=== PATIENT | female | born 2000 ===

== ENCOUNTER → 2024-04-26 | Outpatient (CLI) | payer OTHER ==
[2024-04-26 20:16] LABS: Candida Group, PCR NOT DETECTED (NOT DETECT); Candida glabrata-krusei, PCR NOT DETECTED (NOT DETECT)
[2024-04-26 20:56] LABS: Bacterial Vaginosis PCR Positive (NEGATIVE)
== END ==
LOC: LAB SHORT 16:43 → LAB 16:43
PROVIDERS: Advanced Practice Midwife
DX: N89.8 Other specified noninflammatory disorders of vagina (principal)
CPT/HCPCS: 87481; 87661; 87801

== ENCOUNTER → 2024-04-28 | Outpatient (CLI) | payer OTHER ==
[2024-05-01 11:02] LABS: C. TRACHOMATIS BY TMA,THINPREP Negative (Negative); N. GONORRHOEAE BY TMA,THINPREP Negative (Negative); SPECIMEN SOURCE Cervical
== END | disposition home or self-care (01) ==
LOC: LAB SHORT 17:08 → LAB 17:08
PROVIDERS: Family Medicine
DX: Z01.419 Encounter for gynecological examination (general) (routine) without abnormal findings (principal); Z11.3 Encounter for screening for infections with a predominantly sexual mode of transmission
CPT/HCPCS: 87491; 87591

== ENCOUNTER → 2024-05-06 | Outpatient (CLI) | payer OTHER ==
[2024-05-06 19:53] LABS: Bacterial Vaginosis PCR Negative (NEGATIVE); Candida Group, PCR NOT DETECTED (NOT DETECT); Candida glabrata-krusei, PCR NOT DETECTED (NOT DETECT)
== END ==
LOC: LAB 17:26 → LAB SHORT 17:26
PROVIDERS: Family Medicine
DX: N76.0 Acute vaginitis (principal); B96.89 Other specified bacterial agents as the cause of diseases classified elsewhere
CPT/HCPCS: 87481; 87661; 87801

== ENCOUNTER → 2024-05-31 | Outpatient (CLI) | payer OTHER ==
[2024-05-31 19:46] LABS: Bacterial Vaginosis PCR Negative (NEGATIVE); Candida Group, PCR NOT DETECTED (NOT DETECT); Candida glabrata-krusei, PCR NOT DETECTED (NOT DETECT)
== END ==
LOC: LAB 16:53 → LAB SHORT 16:53
PROVIDERS: Advanced Practice Midwife
DX: N89.8 Other specified noninflammatory disorders of vagina (principal)
CPT/HCPCS: 87481; 87661; 87801

== ENCOUNTER → 2024-07-07 | Outpatient (CLI) | payer OTHER ==
[2024-07-07 19:39] LABS: Bacterial Vaginosis PCR Negative (NEGATIVE); Candida Group, PCR NOT DETECTED (NOT DETECT); Candida glabrata-krusei, PCR NOT DETECTED (NOT DETECT)
== END ==
LOC: LAB 16:05 → LAB SHORT 16:05
PROVIDERS: Advanced Practice Midwife
DX: N76.0 Acute vaginitis (principal)
CPT/HCPCS: 87481; 87661; 87801

== ENCOUNTER → 2024-10-08 | Outpatient (CLI) | payer OTHER | END | disposition home or self-care (01) | LOC: LAB 13:33 → LAB SHORT 13:33 | DX: O09.90 Supervision of high risk pregnancy, unspecified, unspecified trimester (principal) | CPT/HCPCS: 87081; 87150 ==

== ENCOUNTER 2024-11-08 18:56 | Inpatient (IN) | payer OTHER ==
[~2024-11-08] VITALS: Ht 157.5 cm; Wt 98.8 kg
[2024-11-08] MEDS ORDERED: Oxytocin 10 Unit / ML Vial IM PRN (19:55)
[2024-11-08] MEDS ORDERED: OXYTOCIN/RINGER'S LACTATE 500 ML IV PRN (19:55)
[2024-11-08] MEDS ORDERED: Ondansetron HCl 2 MG / ML 2ML Vial IV PRN (19:55)
[2024-11-08] MEDS ORDERED: Methylergonovine Maleate 0.2MG / ML 1ML Amp IM PRN (19:55)
[2024-11-08] MEDS ORDERED: Lactated Ringer's 1,000 ML IV PRN (19:55)
[2024-11-08] MEDS ORDERED: Tranexamic Acid 100 ML IV SCH (19:55)
[2024-11-08] MEDS ORDERED: Misoprostol 200 MCG Tab BC PRN (19:55)
[2024-11-08] MEDS ORDERED: Carboprost Tromethamine 250 MCG/ML 1ML Amp IM PRN (19:55)
[2024-11-08] MEDS ORDERED: Misoprostol 200 MCG Tab PR PRN (19:55)
[2024-11-08] MEDS ORDERED: Acetaminophen 500 MG Tab PO PRN (19:55)
[2024-11-08] MEDS ORDERED: Lactated Ringer's 1,000 ML IV SCH ×4 (20:00→22:05)
[2024-11-08] MEDS ORDERED: Calcium Carbonate 500 MG Tab Chew PO SCH (20:00)
[2024-11-08 20:07] VITALS: BP 158/88
[2024-11-08 20:29] VITALS: BP 130/75
[2024-11-08 20:31] VITALS: BP 130/75
[2024-11-08] MEDS ORDERED: Calcium Carbonate 500 MG Tab Chew PO PRN (21:05)
[2024-11-08 21:46] LABS: BASOPHILS ABSOLUTE AUTO 0.04 K/mm3 (0.00-0.23); BASOPHILS PERCENT AUTO 0 % (0-2); EOSINOPHILS ABSOLUTE AUTO 0.02 K/mm3 (0.00-0.68); EOSINOPHILS PERCENT AUTO 0 % (0-6); Hematocrit 36.1 % (33.0-51.0); Hemoglobin 11.6 g/dL (11.5-16.0); IMMATURE GRAN ABSOLUTE AUTO 0.06 K/mm3 (0.00-0.10); IMMATURE GRAN PERCENT AUTO 1 % (0-1); LYMPHOCYTES ABSOLUTE AUTO 1.87 K/mm3 (0.84-5.20); LYMPHOCYTES PERCENT AUTO 18 % (21-46); MONOCYTES ABSOLUTE AUTO 0.74 K/mm3 (0.16-1.47); MONOCYTES PERCENT AUTO 7 % (4-13); Mean Corpuscular HGB 27.4 pg (26.0-34.0); Mean Corpuscular HGB Conc 32.1 g/dL (31.5-36.5); Mean Corpuscular Volume 85 fL (80-100); Mean Platelet Volume 9.1 fL (9.1-12.4); NEUTROPHILS ABSOLUTE AUTO 7.63 K/mm3 (1.96-9.15); NEUTROPHILS PERCENT AUTO 74 % (41-73); Platelet Count 270 K/mm3 (150-400); RDW Coefficient Variation 15.1 % (11.7-14.2); RDW Standard Deviation 46.2 fL (35.1-46.3); Red Blood Cell Count 4.23 M/mm3 (3.80-5.20); White Blood Cell Count 10.36 K/mm3 (4.00-11.30)
[2024-11-08] MEDS ORDERED: Misoprostol 25 MCG Tab VAG PRN (21:55)
[2024-11-08] MEDS ORDERED: OXYTOCIN/RINGER'S LACTATE 500 ML IV SCH (22:00)
[2024-11-08] MEDS ORDERED: ePHEDrine Sulfate 50 MG/ML 1ML Injection XX PRN (22:05)
[2024-11-08] MEDS ORDERED: FentaNYL 2mcg/ml-Bup 0.1% Epd 250 ML EPI PRN (22:05)
[2024-11-08] MEDS ORDERED: PENICILLIN POTASSIUM IV ONE (22:10)
[2024-11-08] MEDS ORDERED: FentaNYL Citrate 50 MCG/ML 2 ML Injection IV PRN (22:10)
[2024-11-08] MEDS ORDERED: Penicillin G Potassium 5,000,000 UNITS in NS 250 ML IV ONE (22:20)
[2024-11-09] VITALS (18 sets, daily range): BP systolic 113–136; BP diastolic 61–107
[2024-11-09] MEDS ORDERED: [UNRECOGNIZED DRUG - OTHER] IV SCH
[2024-11-09] MEDS ORDERED: Acetaminophen 500 MG Tab PO PRN ×2 (01:00→14:40)
[2024-11-09] MEDS ORDERED: Zolpidem Tartrate 10 MG Tab PO ONE (01:00)
[2024-11-09] MEDS ORDERED: Calcium Carbonate 500 MG Tab Chew PO PRN (01:00)
[2024-11-09] MEDS ORDERED: Lactated Ringer's 1,000 ML IV PRN ×3 (01:05)
[2024-11-09] MEDS ORDERED: PENICILLIN POTASSIUM IV ONE (05:05)
[2024-11-09] MEDS ORDERED: Penicillin G Potassium 5,000,000 UNITS in NS 250 ML IV ONE (05:15)
[2024-11-09] MEDS ORDERED: Penicillin G Potassium 2,500,000 UNITS in Dextrose 5% 100 ML IV SCH (10:00)
[2024-11-09] MEDS ORDERED: CeFAZolin Sodium 2,000 MG in NS 100 ML IV SCH (10:30)
[2024-11-09] MEDS ORDERED: Metoclopramide HCl 5MG / ML 2ML Vial IV ONE (12:40)
[2024-11-09] MEDS ORDERED: Citric Acid/Sodium Citrate 30 ML BTL PO SCH (12:40)
[2024-11-09] MEDS ORDERED: Oxytocin 10 Unit / ML Vial ONE (13:06)
[2024-11-09] MEDS ORDERED: ePHEDrine Sulfate 50 MG/ML 1ML Injection ONE (13:33)
--- NOTE | 2024-11-09 14:10 | NUR ---
11/09/24 1410 Daria Berumen 1349 DELIVERY VIABLE MALE , WEIGHT 3660 * # 1OZ, HEAD 14 INCHES, CHEST 13.75 INCHES, LENGTH 20.5 INCHES, APRGARS 9/ UMBILICAL CORD BLOOD COLLECTED AND GIVEN TO OB RN
[2024-11-09] MEDS ORDERED: Ketorolac Tromethamine 30mg Vial ONE (14:26)
[2024-11-09] MEDS ORDERED: Lanolin Cream TOP PRN (14:30)
[2024-11-09] MEDS ORDERED: Measles/Mumps/Rubella Vaccine 0.5 ML Vial SC ONE (14:30)
[2024-11-09] MEDS ORDERED: OxyCODONE HCL 5 MG TAB PO PRN ×2 (14:30→14:40)
[2024-11-09] MEDS ORDERED: DiphenhydrAMINE HCL 25 MG Cap PO PRN (14:35)
[2024-11-09] MEDS ORDERED: Diphth,Pertuss(Acell),Tet Vac 0.5 ML VIAL IM ONE (14:35)
[2024-11-09] MEDS ORDERED: Ondansetron HCl 2 MG / ML 2ML Vial IV PRN (14:35)
[2024-11-09] MEDS ORDERED: Polyethylene Glycol 3350 17 gm PO PRN (14:35)
[2024-11-09] MEDS ORDERED: Promethazine HCl 25 MG Tab PO PRN (14:35)
[2024-11-09] MEDS ORDERED: Methylergonovine Maleate 0.2 MG Tab PO PRN (14:35)
[2024-11-09] MEDS ORDERED: Rho(D) Immune Globulin 300 MCG / SYR IM ONE (14:40)
[2024-11-09] MEDS ORDERED: Methylergonovine Maleate 0.2MG / ML 1ML Amp IM PRN (14:40)
[2024-11-09] MEDS ORDERED: Simethicone 80 MG Chew PO PRN (14:40)
[2024-11-09] MEDS ORDERED: OXYTOCIN/RINGER'S LACTATE 500 ML IV SCH (14:40)
[2024-11-09] MEDS ORDERED: OXYTOCIN/RINGER'S LACTATE 16.66666666 ML IV ONE (14:40)
[2024-11-09] MEDS ORDERED: Misoprostol 200 MCG Tab PR PRN (14:45)
[2024-11-09] MEDS ORDERED: Ketorolac Tromethamine 30mg Vial IV SCH (15:00)
[2024-11-09] MEDS ORDERED: Ketorolac Tromethamine 30mg Vial IV PRN (20:30)
[2024-11-10 04:54] VITALS: BP 123/73
--- NOTE | 2024-11-10 05:39 | NUR ---
SLIGHT DIZZIENESS AT END OF SHOWER, ABLE TO AMBULATE BACK TO BED WITH MINIMAL ASSIST.
--- NOTE | 2024-11-10 05:40 | NUR ---
EDUCATED PT ON AMBULATING IN HALLWAY THREE TIMES DURING THE DAY. BABY MAY BE PUSHED IN [place]ASSINET. STATES UNDERSTANDING.
[2024-11-10 07:43] VITALS: BP 123/72
[2024-11-10] MEDS ORDERED: Ibuprofen 400 MG Tab PO SCH (08:00)
[2024-11-10 08:18] LABS: BASOPHILS ABSOLUTE AUTO 0.04 K/mm3 (0.00-0.23); BASOPHILS PERCENT AUTO 0 % (0-2); EOSINOPHILS ABSOLUTE AUTO 0.02 K/mm3 (0.00-0.68); EOSINOPHILS PERCENT AUTO 0 % (0-6); Hematocrit 25.2 % (33.0-51.0); Hemoglobin 8.1 g/dL (11.5-16.0); IMMATURE GRAN ABSOLUTE AUTO 0.06 K/mm3 (0.00-0.10); IMMATURE GRAN PERCENT AUTO 1 % (0-1); LYMPHOCYTES ABSOLUTE AUTO 1.34 K/mm3 (0.84-5.20); LYMPHOCYTES PERCENT AUTO 13 % (21-46); MONOCYTES ABSOLUTE AUTO 0.78 K/mm3 (0.16-1.47); MONOCYTES PERCENT AUTO 8 % (4-13); Mean Corpuscular HGB 27.6 pg (26.0-34.0); Mean Corpuscular HGB Conc 32.1 g/dL (31.5-36.5); Mean Corpuscular Volume 86 fL (80-100); Mean Platelet Volume 9.1 fL (9.1-12.4); NEUTROPHILS ABSOLUTE AUTO 7.98 K/mm3 (1.96-9.15); NEUTROPHILS PERCENT AUTO 78 % (41-73); Platelet Count 209 K/mm3 (150-400); RDW Coefficient Variation 15.5 % (11.7-14.2); RDW Standard Deviation 46.8 fL (35.1-46.3); Red Blood Cell Count 2.93 M/mm3 (3.80-5.20); White Blood Cell Count 10.22 K/mm3 (4.00-11.30)
[2024-11-10] MEDS ORDERED: Prenatal Vit/FE Fumarate/FA 1 Tab PO SCH (09:00)
[2024-11-10 11:33] VITALS: BP 123/72
[2024-11-10 16:49] VITALS: BP 128/66
[2024-11-10 19:02] VITALS: BP 126/67
[2024-11-11] VITALS (13 sets, daily range): BP systolic 121–132; BP diastolic 61–81
--- NOTE | 2024-11-11 12:38 | NUR ---
REPORT TO [facility] NURSE
[2024-11-11] MEDS ORDERED: Sod Ferric Gluc Complx/Sucrose 125 MG in NS 100 ML IV SCH (14:00)
--- NOTE | 2024-11-11 19:08 | NUR ---
agree with bp rn charting
[2024-11-12 03:39] VITALS: BP 134/72
[2024-11-12 08:07] VITALS: BP 116/69
[2024-11-12] MEDS ORDERED: IBUP800 PO (08:20)
[2024-11-12] MEDS ORDERED: OXAYDO5 M1 (08:20)
[2024-11-12] MEDS ORDERED: PRENATAL TABLE1 EAC2 PO (08:21)
[2024-11-12] MEDS ORDERED: ACET500 PO (08:21)
[2024-11-12 10:51] VITALS: BP 112/62
--- NOTE | 2024-11-12 11:08 | NUR ---
DISCHARGE DISCHARGE HOME STABLE. VERBALIZES UNDERSTANDING OF DC INSTRUCTIONS AND FOLLOW UP APPOINTMENTS. POLY GRIGGS. VSS. ALL QUESTIONS ANSWERED. RX SENT TO PHARMACY BY JULIET TO [facility].
== END 2024-11-12 11:30 | disposition home or self-care (01) | DRG 788 ==
LOC: OBS 18:56 → BC 19:12
PROVIDERS: Family Medicine; ADMIT Obstetrics & Gynecology
PROC: 10D00Z1 Extraction of Products of Conception, Low, Open Approach (ICD-10-PCS; principal; 2024-11-09 13:00)
DX: O48.0 Post-term pregnancy (principal); O99.214 Obesity complicating childbirth; O99.344 Other mental disorders complicating childbirth; F41.9 Anxiety disorder, unspecified; O76 Abnormality in fetal heart rate and rhythm complicating labor and delivery; F32.A Depression, unspecified; R03.0 Elevated blood-pressure reading, without diagnosis of hypertension; O75.89 Other specified complications of labor and delivery; Z3A.40 40 weeks gestation of pregnancy; Z37.0 Single live birth; O90.81 Anemia of the puerperium
CPT/HCPCS: 36415; 85025; 86850; 86900; 86901; 86923; A9270; J0690; J1885; J2540; J2590; J2765; J2916; J7050; J7120

== ENCOUNTER 2025-01-11 15:59 | Emergency (ER) | payer OTHER ==
[~2025-01-11] VITALS: Ht 157.5 cm; Wt 86.2 kg
[~2025-01-11 15:59] MED LIST: ACET500 PO; IBUP800 PO; OXAYDO5 M1; PRENATAL TABLE1 EAC2 PO
[2025-01-11] MEDS ORDERED: Ketorolac Tromethamine 15mg Vial IV ONE ×2 (16:35→19:25)
[2025-01-11 17:12] LABS: BASOPHILS ABSOLUTE AUTO 0.07 K/mm3 (0.00-0.23); BASOPHILS PERCENT AUTO 1 % (0-2); EOSINOPHILS ABSOLUTE AUTO 0.13 K/mm3 (0.00-0.68); EOSINOPHILS PERCENT AUTO 1 % (0-6); Hematocrit 37.6 % (33.0-51.0); Hemoglobin 12.1 g/dL (11.5-16.0); IMMATURE GRAN ABSOLUTE AUTO 0.03 K/mm3 (0.00-0.10); IMMATURE GRAN PERCENT AUTO 0 % (0-1); LYMPHOCYTES ABSOLUTE AUTO 2.28 K/mm3 (0.84-5.20); LYMPHOCYTES PERCENT AUTO 23 % (21-46); MONOCYTES ABSOLUTE AUTO 0.53 K/mm3 (0.16-1.47); MONOCYTES PERCENT AUTO 5 % (4-13); Mean Corpuscular HGB 27.9 pg (26.0-34.0); Mean Corpuscular HGB Conc 32.2 g/dL (31.5-36.5); Mean Corpuscular Volume 87 fL (80-100); Mean Platelet Volume 8.5 fL (9.1-12.4); NEUTROPHILS ABSOLUTE AUTO 7.07 K/mm3 (1.96-9.15); NEUTROPHILS PERCENT AUTO 70 % (41-73); Platelet Count 443 K/mm3 (150-400); RDW Coefficient Variation 15.6 % (11.7-14.2); RDW Standard Deviation 48.5 fL (35.1-46.3); Red Blood Cell Count 4.33 M/mm3 (3.80-5.20); White Blood Cell Count 10.11 K/mm3 (4.00-11.30)
[2025-01-11 17:46] LABS: Albumin, Blood 3.9 g/dL (3.4-5.0); Albumin/Globulin Ratio 0.9 (0.8-1.8); Bilirubin, Total 0.2 mg/dL (0.1-1.0); Bun/Creatinine Ratio 10.8 (12.0-20.0); Calcium, Blood 9.4 mg/dL (8.5-10.1); Creatinine, Blood 0.74 mg/dL (0.40-1.00); Globulin, Blood 4.5 g/dL (2.2-4.0); Potassium, Blood 3.5 mmol/L (3.5-5.5); Total Protein, Blood 8.4 g/dL (6.4-8.2)
[2025-01-11] MEDS ORDERED: AVIANE-28 TABL1 EACH PO (19:33)
[2025-01-11] MEDS ORDERED: Acetaminophen 500 MG Tab PO ONE (19:55)
[2025-01-11] MEDS ORDERED: IBUP600 PO (19:57)
[2025-01-11] MEDS ORDERED: ACET500 PO (19:57)
== END 2025-01-11 20:29 | disposition home or self-care (01) ==
LOC: ER 15:59
PROVIDERS: Physician Assistant
DX: M75.92 Shoulder lesion, unspecified, left shoulder (principal); R10.2 Pelvic and perineal pain; R93.6 Abnormal findings on diagnostic imaging of limbs; Z98.890 Other specified postprocedural states
CPT/HCPCS: 71046; 73030; 80053; 83690; 85025; 96374; 99284-25; A9270; J1885